=== PATIENT | female | born 1990 | race Caucasian/White ===

== ENCOUNTER 2019-01-11 16:51 | Emergency (ER) | payer OTHER ==
[~2019-01-11] VITALS: Ht 160 cm; Wt 63.5 kg
[2019-01-11] MEDS ORDERED: HYDROXYZINE HCL25 MG PO (18:35)
--- NOTE | 2019-01-11 23:52 | EKG ---
[facility] [address] [facility] [place], [place] [address] Signed Normal sinus rhythm Normal ECG No previous ECGs available Confirmed by MAGO BRICEÑO MD [id number] on 01/11/2019 11:52:09 PM Electronically Signed By: MAGO BRICEÑO MD 01/11/19 2352 PATIENT NAME: JOSE FIGUEREDO Electrocardiogram DATE OF : 86 PHYSICIAN: MAGO BRICEÑO MD REPORT #: [id number] REPORT IS CONFIDENTIAL AND NOT TO BE RELEASED WITHOUT AUTHORIZATION
== END 2019-01-11 18:47 | disposition home or self-care (01) ==
LOC: ED 16:51
DX: R07.89 Other chest pain (principal); F41.9 Anxiety disorder, unspecified
CPT/HCPCS: 80053; 84484; 85025; 93005; 93010; 99285-25